=== PATIENT | female | born 1970 | race Native Hawaiian/Other Pacific Islander ===

== ENCOUNTER → 2019-03-01 | Outpatient (CLI) | payer BC | LOC: CARD 08:57 | PROVIDERS: ATTEND Internal Medicine Cardiovascular Disease | DX: I49.3 Ventricular premature depolarization (principal); R00.2 Palpitations; R00.0 Tachycardia, unspecified | CPT/HCPCS: 93225; 93226; 93306 ==

== ENCOUNTER → 2021-06-28 | Outpatient (CLI) | payer BC ==
--- NOTE | 2021-06-28 13:06 | Diagnostic Imaging Report ---
PROCEDURE: Pelvic comp/transvaginal sonogram. TECHNIQUE: Complete transabdominal and transvaginal pelvic ultrasound was performed. In addition, limited pelvic Doppler was performed. INDICATION: Abnormal uterine bleeding. Uterus measures 8.5 x 6.8 x 8.7 cm and appears to be anteverted. There appear to be some some uterine fibroids present largest approximately 2.6 x 1.9 x 1.8 cm. There are cervical nabothian cysts. Endometrium is abnormally thickened at 19 mm. The ovaries are not visualized. No adnexal mass or free fluid is detected. IMPRESSION: 1. Fibroid uterus. 2. Abnormally thickened endometrium 19 mm. While this could be owing to hyperplasia, neoplasm cannot be entirely excluded. Dictated by: Dictated on workstation # [id number]
== END ==
LOC: RAD 11:00
PROVIDERS: ATTEND Obstetrics & Gynecology
DX: D25.9 Leiomyoma of uterus, unspecified (principal)
CPT/HCPCS: 76830; 76856

== ENCOUNTER 2021-07-29 05:31 | Outpatient (CLI) | payer BC ==
[~2021-07-29] VITALS: Ht 167.7 cm; Wt 95.9 kg
[2021-08-01] MEDS ORDERED: LORA-404 PO (12:07)
[2021-08-01] MEDS ORDERED: ATEN25TA PO (12:07)
[2021-08-01] MEDS ORDERED: PEDI1TAB60 PO (12:07)
== END 2021-08-01 12:10 | disposition home or self-care (01) ==
LOC: PREOP 05:31
PROVIDERS: ATTEND Obstetrics & Gynecology
DX: Z01.818 Encounter for other preprocedural examination (principal)

== ENCOUNTER 2021-08-05 08:50 | Day surgery (SDC) | payer BC ==
[~2021-08-05] VITALS: Ht 167.7 cm; Wt 95.9 kg
[2021-08-05] VITALS (10 sets, daily range): BP systolic 92–141; BP diastolic 42–87
[~2021-08-05 08:50] MED LIST: ATEN25TA PO; LACTATED RINGERS 1,000 ML IV PRN; LORA-404 PO; PEDI1TAB60 PO
--- NOTE | 2021-08-05 09:38 | Progress Note-Pre Operative ---
Pre-Operative Progress Note H&P Reviewed The H&P was reviewed, patient examined and no changes noted. Date Seen by Provider: Aug 05, 2021 Time Seen by Provider: : Date H&P Reviewed: Aug 05, 2021 Time H&P Reviewed: :30 Pre-Operative Diagnosis: AUB, Thickened endometrium, Fibroid uterus TITO PAUL DO Aug 05, 2021 09:38
--- NOTE | 2021-08-05 09:40 | Discharge Inst-Women's Service ---
Discharge Inst-Women's Serv Depart Medication/Instructions New, Converted or Re-Newed RX: Transmitted to Pharmacy Problems Reviewed?: Yes Consults/Follow Up Additional Follow Up: Yes Orders/Referrals Dr. Paul in 7-10 days Activity Activity: Activity as Tolerated Driving Instructions: You May Drive NO SMOKING: NO SMOKING Nothing Inside Vagina: No Douching, No [place], No Tampons Diet Discharge Diet: No Restrictions Symptoms to Report to : Bleeding Excessive, Pain Increased, Fever Over 101 Degrees F, Vaginal Bleeding Increase, Questions/Concerns TITO PAUL DO Aug 05, 2021 09:40
[2021-08-05] MEDS ORDERED: IBUP-1773 PO (09:41)
[2021-08-05] MEDS ORDERED: KETOROLAC 30 MG/ML VIAL IVP ONE (09:45)
[2021-08-05] MEDS ORDERED: HYDROcodone/APAP 5 MG/325 MG (LORTAB) TAB PO PRN (09:45)
[2021-08-05] MEDS ORDERED: D5 LR IV SOLUTION 1,000 ML IV SCH (09:45)
[2021-08-05] MEDS ORDERED: ONDANSETRON 4 MG/2 ML (SDV) Z0FRAN IVP PRN ×2 (09:45→11:15)
[2021-08-05] MEDS ORDERED: BUPIVACAINE 0.25% 30 ML (SENSORCAINE) VIAL ONE (10:03)
[2021-08-05 10:23] LABS: BASOPHILS # (AUTO) 0.1 10^3/uL (0.0-0.1); BASOPHILS % (AUTO) 1 % (0-10); EOSINOPHILS # (AUTO) 0.1 10^3/uL (0.0-0.3); EOSINOPHILS % (AUTO) 2 % (0-10); HEMATOCRIT 34 % (35-52); HEMOGLOBIN 10.6 g/dL (11.5-16.0); LYMPHOCYTES # (AUTO) 1.3 10^3/uL (1.0-4.0); LYMPHOCYTES % (AUTO) 19 % (12-44); MEAN CORPUSCULAR HEMOGLOBIN 26 pg (25-34); MEAN CORPUSCULAR HGB CONC 31 g/dL (32-36); MEAN CORPUSCULAR VOLUME 84 fL (80-99); MEAN PLATELET VOLUME 9.4 fL (9.0-12.2); MONOCYTES # (AUTO) 0.6 10^3/uL (0.0-1.0); MONOCYTES % (AUTO) 9 % (0-12); NEUTROPHILS # (AUTO) 4.6 10^3/uL (1.8-7.8); NEUTROPHILS % (AUTO) 69 % (42-75); PLATELET COUNT 374 10^3/uL (130-400); WHITE BLOOD COUNT 6.6 10^3/uL (4.3-11.0)
[2021-08-05] MEDS ORDERED: ONDANSETRON 4 MG/2 ML (SDV) Z0FRAN ONE (10:26)
[2021-08-05] MEDS ORDERED: fentaNYL INJ 100 MCG/2 ML AMP ONE (10:26)
[2021-08-05] MEDS ORDERED: LIDOCAINE PF 2% 5 ML (XYLOCAINE) VIAL ONE (10:26)
[2021-08-05] MEDS ORDERED: MIDAZOLAM 2 MG/2 ML (VERSED) VIAL ONE (10:26)
[2021-08-05] MEDS ORDERED: SEVOFLURANE (ULTANE) 15 ML INHAL SOLN ONE (10:26)
[2021-08-05] MEDS ORDERED: proPOfol 200 MG/20 ML (DIPRIVAN) VIAL IV ONE (10:26)
--- NOTE | 2021-08-05 11:08 | Anesthesia-General Post-Op ---
General Patient Condition Mental Status/LOC: Same as Preop Cardiovascular: Satisfactory Nausea/Vomiting: Absent Respiratory: Satisfactory Pain: Controlled Complications: Absent Post Op Complications Complications None Follow Up Care/Instructions Patient Instructions None needed. Anesthesia/Patient Condition Patient Condition Patient is doing well, no complaints, stable vital signs, no apparent adverse anesthesia problems. No complications reported per nursing. COY GARZA CRNA Aug 05, 2021 11:08
[2021-08-05] MEDS ORDERED: fentaNYL INJ 100 MCG/2 ML AMP IVP ONE (11:15)
[2021-08-05] MEDS ORDERED: MEPERIDINE (DEMEROL) INJ 50 MG/ML IVP ONE (11:15)
[2021-08-05] MEDS ORDERED: morphine INJ 10 MG/ML 1ML (SYR OR VIAL) IVP ONE (11:15)
[2021-08-05] MEDS ORDERED: KETOROLAC 30 MG/ML VIAL ONE (11:38)
--- NOTE | 2021-08-05 15:57 | OPERATIVE REPORT ---
DATE OF SERVICE: PREOPERATIVE DIAGNOSES: 1. A 50-year-old female with abnormal uterine bleeding. 2. BMI of greater than 30. 3. Thickened endometrium on ultrasound. POSTOPERATIVE DIAGNOSES: 1. A 50-year-old female with abnormal uterine bleeding. 2. BMI of greater than 30. 3. Thickened endometrium on ultrasound. PROCEDURE: D and C. SURGEON: Tito Paul DO ANESTHESIA: LMA general. ESTIMATED BLOOD LOSS: Minimal. URINE OUTPUT: 200 mL drained at the end of the procedure. FLUIDS: 500 mL lactated Ringer's solution. FINDINGS: Normal external female genitalia with a moderate amount of endometrial curettings collected on D and C. SPECIMEN SENT: Endometrial curettings. INDICATIONS FOR PROCEDURE: This 50-year-old female is a patient who had sought my advice in care for abnormal heavy irregular bleeding that was occurring every 2 to 3 weeks. The patient reports that going through pads and having extremely difficult time with this. I discussed with the patient need for endometrial sampling based upon her age and ultrasound findings as well as her weight. After everything was discussed with the patient in detail including the indications for procedural risks were reviewed, consent was obtained, the patient was taken to the operating room. OPERATIVE REPORT IN DETAIL: Once in the operating room, anesthesia was found to be adequate, placed in dorsal lithotomy position, prepped and draped in normal sterile fashion where a weighted speculum was placed in the patient's vagina after a timeout was performed. A right angle retractor was used to visualize the cervix, which was grasped at 12 o'clock position using a long Allis clamp. I then performed paracervical block at 3 and 9 o'clock positions on the cervix. Care was taken to aspirate for injecting 5 mL of 0.25% Marcaine injected into each site. I then gently sound the uterine cavity, depth was found to be approximately 9 cm. I then gently dilated the cervix using Hanks dilators to maximum dilatation approximately 8 mm, at which point I performed a gentle curettage of the endometrium collecting as much endometrial tissue as I am able to get in until I encounter a gentle uterine cry, at which point I thinned out and collected tissue as endometrial curettings. There was no active bleeding noted from the uterus or cervix. At that point, I removed all instruments from the patient's vagina. The patient tolerated the procedure well and sent to recovery area in stable condition. Lap and sponge counts were correct at the end of the procedure. Instrument count was correct as well. Job ID: [id number] DocumentID: [id number] Dictated Date: 08/05/2021 11:22:02 Assisted Living Care Manager Date: 08/05/2021 15:56:25 Dictated By: TITO PAUL DO
== END 2021-08-05 13:00 | disposition home or self-care (01) ==
LOC: SDC 08:50
PROVIDERS: ATTEND Obstetrics & Gynecology
DX: N93.9 Abnormal uterine and vaginal bleeding, unspecified (principal); R93.89 Abnormal findings on diagnostic imaging of other specified body structures; D25.1 Intramural leiomyoma of uterus; N85.8 Other specified noninflammatory disorders of uterus; I10 Essential (primary) hypertension; E11.9 Type 2 diabetes mellitus without complications; E66.9 Obesity, unspecified; Z68.35 Body mass index [BMI] 35.0-35.9, adult
CPT/HCPCS: 36415; 82947; 84703; 85025; 86850; 86900; 86901; 87081

== ENCOUNTER → 2022-07-24 | Outpatient (CLI) | payer BC ==
[~2022-07-24] MED LIST changes: +IBUP-1773 PO; -LACTATED RINGERS 1,000 ML IV PRN
--- NOTE | 2022-07-24 16:44 | Diagnostic Imaging Report ---
PROCEDURE: US Non-ob pelvis comp/trans. TECHNIQUE: Multiple realtime grayscale images were obtained of the pelvis in various projections endovaginally. Transabdominal imaging was also performed. INDICATION: Abnormal uterine bleeding. COMPARISON: 06/28/2021 FINDINGS: The uterus measures 7.6 x 5.3 x 6.5 cm. Multiple nabothian gland cysts are noted and simple in nature. In the anterior aspect of the uterine body, there is a heterogeneous area measuring approximately 3.4 cm that is most likely due to an intramural fibroid. The overall appearance is similar to prior exam. The endometrium measures up to 0.6 cm where visualized, and is normal in echogenicity. Both adnexa are imaged, but the ovaries are not able be seen due to surrounding bowel gas. No free pelvic fluid. IMPRESSION: 1. Stable heterogeneous appearance of the body of the uterus is likely due to intramural fibroid. 2. No endometrial thickening. 3. Ovaries are not able to be seen due to surrounding bowel gas. Dictated by: Dictated on workstation # [id number]
== END ==
LOC: RAD 11:57
PROVIDERS: ATTEND Obstetrics & Gynecology
DX: N93.9 Abnormal uterine and vaginal bleeding, unspecified (principal)
CPT/HCPCS: 76830; 76856